=== PATIENT | female | born 1990 | race Caucasian/White ===

== ENCOUNTER 2016-11-26 18:48 | Inpatient (IN) | payer OTHER ==
[2016-11-26 19:48] LABS: HGB 10.8 g/dl (12.5-16.0); MCHC 32.7 g/dL (32.0-36.0); MCV 82.5 fL (78.0-100.0); MPV 10.5 fL (6.0-9.5); RDW 15.2 % (11.5-14.0); WBC 14.6 K/uL (4.0-10.5)
[2016-11-26 19:50] LABS: BILIRUBIN NEGATIVE (NEGATIVE); BLOOD NEGATIVE Ery/uL (NEGATIVE); CLARITY CLEAR (CLEAR); COLOR YELLOW (YELLOW); GLUCOSE (U) NORMAL (NORMAL); KETONE (U) TRACE mg/dL (NEGATIVE); LEUKOCYTES NEGATIVE Leu/uL (NEGATIVE); NITRITE NEGATIVE (NEGATIVE); PROTEIN NEGATIVE (NEGATIVE); SPECIFIC GRAVITY >=1.030 (1.001-1.030); UROBILINOGEN 0.2 mg/dL (0.2-1.0)
[2016-11-26 20:05] LABS: ALBUMIN 3.5 g/dL (3.5-5.0); BILIRUBIN - TOTAL 0.2 mg/dL (0.1-1.0); CREATININE 0.6 mg/dL (0.5-1.0); GLOBULIN (CALCULATION) 2.8 g/dL (2.2-4.2); POTASSIUM 3.7 mmol/L (3.5-5.1); TOTAL PROTEIN 6.3 g/dL (6.4-8.3); URIC ACID 6.2 mg/dL (2.4-5.7)
[2016-11-27 13:37] LABS: BILIRUBIN NEGATIVE (NEGATIVE); BLOOD NEGATIVE Ery/uL (NEGATIVE); CLARITY CLEAR (CLEAR); COLOR YELLOW (YELLOW); GLUCOSE (U) NORMAL (NORMAL); KETONE (U) NEGATIVE (NEGATIVE); LEUKOCYTES NEGATIVE Leu/uL (NEGATIVE); NITRITE NEGATIVE (NEGATIVE); PROTEIN NEGATIVE (NEGATIVE); SPECIFIC GRAVITY 1.015 (1.001-1.030); pH 7.5 (5.0-9.0)
[2016-11-28 06:16] LABS: HCT 28.7 % (37.0-47.0); HGB 9.1 g/dl (12.5-16.0); MCH 26.8 pg (25.0-31.0); MCHC 31.7 g/dL (32.0-36.0); MCV 84.4 fL (78.0-100.0); MPV 10.1 fL (6.0-9.5); RBC 3.4 M/uL (4.20-5.40); RDW 15.5 % (11.5-14.0); WBC 12.2 K/uL (4.0-10.5)
== END 2016-11-29 13:15 | disposition home or self-care (01) | DRG 765 ==
LOC: FOD 18:48 → FOB 18:49 → FOD 20:05 → FOB 20:06
PROVIDERS: Obstetrics & Gynecology; ADMIT Obstetrics & Gynecology
PROC: 10D00Z1 Extraction of Products of Conception, Low, Open Approach (ICD-10-PCS; principal; 2016-11-27 10:00)
DX: O34.211 Maternal care for low transverse scar from previous cesarean delivery (principal); D62 Acute posthemorrhagic anemia; Z3A.38 38 weeks gestation of pregnancy; Z37.0 Single live birth; O13.4 Gestational [pregnancy-induced] hypertension without significant proteinuria, complicating childbirth; O36.5930 Maternal care for other known or suspected poor fetal growth, third trimester, not applicable or unspecified; O99.214 Obesity complicating childbirth; E66.9 Obesity, unspecified; O99.89 Other specified diseases and conditions complicating pregnancy, childbirth and the puerperium; Q51.810 Arcuate uterus; Z88.5 Allergy status to narcotic agent; O99.03 Anemia complicating the puerperium; Z68.37 Body mass index [BMI] 37.0-37.9, adult; R42 Dizziness and giddiness
CPT/HCPCS: 36415; 80053; 81003; 83615; 84550; J0690; J1170; J1756; J1885; J2274; J3010